=== PATIENT | female | born 1935 | race Caucasian/White ===

== ENCOUNTER 2017-08-04 20:25 | Emergency (ER) | payer MEDICARE, OTHER ==
[2017-08-04 21:37] VITALS: BP 137/73
--- NOTE | 2017-08-05 01:47 | EDM.PDOC ---
ED HPI GENERAL MEDICAL PROBLEM - General Chief Complaint: Gastrointestinal Problem Stated Complaint: [phone] BLOODY STOOL Time Seen by Provider: 08/05/17 00:07 Source of Information: Reports: Patient History Limitations: Reports: Other (Hearing impaired. ) - History of Present Illness INITIAL COMMENTS - FREE TEXT/NARRATIVE: ED with daughter. Reports 2 episodes of bloody diarrhea one bright red and one dark. No nausea or abdominal pain. Has had stomach ulcers in past, hemorrhoids that bleed at times when constipated. Chills past few days. Rectal Pain Score (Numeric/FACES): 8 - Related Data Allergies Allergy/AdvReac Type Severity Reaction Status Date / Time No Known Allergies Allergy Verified 08/04/17 21:31 Home Meds: Home Meds Aspirin [Adult Low Dose Aspirin EC] 81 mg PO DAILY 03/13/14 [History] Budesonide [Pulmicort] 0.5 mg INH ASDIRECTED 03/13/14 [History] Formoterol [Perforomist] 20 mcg INH ASDIRECTED 03/13/14 [History] Levothyroxine 112 mcg PO DAILY 03/13/14 [History] Metoprolol Succinate [Toprol XL] 25 mg PO DAILY 03/13/14 [History] Multivitamin [Multi Vitamin Daily] 1 tab PO DAILY 03/13/14 [History] Nitroglycerin [Nitrostat] 0.4 mg SL ASDIRECTED PRN 03/13/14 [History] Simvastatin [Zocor] 5 mg PO DAILY 03/13/14 [History] Warfarin [Coumadin] 4 mg PO ASDIRECTED 03/13/14 [History] amLODIPine [Norvasc] 2.5 mg PO DAILY 03/13/14 [History] traMADol [Ultram] 50 mg PO DAILY PRN 03/13/14 [History] Warfarin [Coumadin] 2 mg PO ASDIRECTED 03/14/14 [History] Ferrous Sulfate [Iron] 325 mg PO BID 05/04/14 [History] Calcitriol [Rocaltrol] 1 cap PO ASDIRECTED 02/13/15 [History] Calcium Carbonate [Tums] 1 tab PO ASDIRECTED PRN 02/13/15 [History] Ipratropium/Albuterol Sulfate [Combivent Respimat Inhal [place]] 2 puff IH Q4HR PRN 02/13/15 [History] Omeprazole 20 mg PO DAILY 02/13/15 [History] Past Medical History HEENT History: Reports: Hard of Hearing, Impaired Vision, Other (See Below) Other HEENT History: deaf Cardiovascular History: Reports: Afib Respiratory History: Reports: COPD Gastrointestinal History: Reports: Chronic Constipation, Other (See Below) ( stomach ulcers, hemorrhoids) Genitourinary History: Reports: None [employer] History: Reports: None Musculoskeletal History: Reports: Other (See Below) Other Musculoskeletal History: wrist fr, middle back fx Neurological History: Reports: None Psychiatric History: Reports: None Endocrine/Metabolic History: Reports: Other (See Below) Other Endocrine/Metabolic History: thyroid Hematologic History: Reports: None, Anticoagulation Therapy Oncologic (Cancer) History: Reports: None Social & Family History - Tobacco Use Smoking Status *Q: Never Smoker Second Hand Smoke Exposure: No - Alcohol Use Days Per Week of Alcohol Use: 1 Number of Drinks Per Day: 1 Total Drinks Per Week: 1 - Recreational Drug Use Recreational Drug Use: No Drug Use in Last 12 Months: No ED ROS GENERAL - Review of Systems Review Of Systems: See Below Constitutional: Reports: Chills HEENT: Reports: No Symptoms Respiratory: Reports: Other (COPD hx) Cardiovascular: Reports: Lightheadedness (when stands up), Other (hx a-fib, INR last week 2.8. ) GI/Abdominal: Reports: Constipation (hx), Other (2 diarrhea stools this aaliyah one large dark blood, one bright red blood.). Denies: Abdominal Pain, Nausea, Vomiting : Reports: No Symptoms Musculoskeletal: Reports: No Symptoms Skin: Reports: No Symptoms Neurological: Reports: No Symptoms Hematologic/Lymphatic: Reports: Other (chronic anticoagulation) ED EXAM, GI/ABD - Physical Exam Exam: See Below Exam Limited By: No Limitations General Appearance: Alert Ears: Hearing Loss (deaf) Throat/Mouth: Normal Inspection Head: Atraumatic, Normocephalic Neck: Normal Inspection Respiratory/Chest: No Respiratory Distress, Lungs Clear, Decreased Breath Sounds (bases), Other (rare couch) Cardiovascular: Normal Peripheral Pulses, Irregularly Irregular GI/Abdominal Exam: Normal Bowel Sounds, Soft, Non-Tender Rectal (Female) Exam: Normal Rectal Tone, Heme + Stool, Hemorrhoids (large) Back Exam: Normal Inspection Extremities: Normal Inspection Neurological: Alert, Oriented, Normal Cognition Psychiatric: Normal Affect Skin Exam: Warm, Dry, Intact, Normal Color Course - Vital Signs Last Recorded V/S: Last Vital Signs Temp 97 F 08/04/17 21:33 Pulse 82 08/04/17 21:33 Resp 18 08/04/17 21:33 BP 137/73 08/04/17 21:33 Pulse Ox 96 08/04/17 21:33 Orthostatic Blood Pressure [ 125/72 Supine] Orthostatic Blood Pressure [ 126/82 Standing] Orthostatic Blood Pressure [ 132/74 Sitting] - Orders/Labs/Meds Orders: Active Orders 24 hr Category Date Time Status Orthostatic Vital Signs [RC] ASDIRECTED Care 08/05/17 01:08 Active CULTURE BLOOD [BC] Stat Lab 08/05/17 01:45 Received CULTURE BLOOD [BC] Stat Lab 08/05/17 01:50 Received Blood Culture x2 Reflex Set [OM.PC] Stat Oth 08/05/17 01:37 Ordered Labs: Laboratory Tests 08/05/17 08/05/17 08/05/17 Range/Units 00:45 00:45 00:45 WBC 17.8 H (5.0-10.0) 10^3/uL RBC 3.98 L (4.2-5.4) 10^6/uL Hgb 12.2 (12.0-16.0) g/dL Hct 38.1 (37.0-47.0) % MCV 95.7 (80-100) fL MCH 30.7 (27.0-34.0) pg MCHC 32.0 L (33.0-35.0) g/dL Plt Count 248 (150-450) 10^3/uL Neut % (Auto) 86.5 H (42.2-75.2) % Lymph % (Auto) 5.9 L (20.5-50.1) % [place] % (Auto) 6.8 (2-8) % Eos % (Auto) 0.6 L (1.0-3.0) % Baso % (Auto) 0.2 (0.0-1.0) % PT 23.4 H (9.0-12.0) SEC INR 2.3 H (0.9-1.2) Sodium 133 L (135-145) mmol/L Potassium 3.9 (3.6-5.0) mmol/L Chloride 98 L (101-111) mmol/L Carbon Dioxide 26.0 (21.0-31.0) mmol/L Anion Gap 12.9 BUN 16 (7-18) mg/dL Creatinine 1.0 (0.6-1.3) mg/dL Est Cr Clr Drug Dosing 40.60 mL/min Estimated GFR (MDRD) 53 BUN/Creatinine Ratio 16.00 Glucose 116 H (74-105) mg/dL Lactic Acid (0.5-2.2) mmol/L Calcium 9.2 (8.4-10.2) mg/dl Total Bilirubin 0.4 (0.2-1.0) mg/dL AST 26 (10-42) IU/L ALT 15 (10-60) IU/L Alkaline Phosphatase 58 (42-121) IU/L Total Protein 8.1 (6.7-8.2) g/dl Albumin 4.2 (3.2-5.5) g/dl Globulin 3.9 Albumin/Globulin Ratio 1.08 Amylase 78 (28-100) U/L Lipase 25 (22-51) U/L Urine Color (YELLOW) Urine Appearance (CLEAR) Urine pH (5.0-9.0) Ur Specific [place] (1.005-1.030) Urine Protein (NEGATIVE) Urine Glucose (UA) (NEGATIVE) Urine Ketones (NEGATIVE) Urine Occult Blood (NEGATIVE) Urine Nitrite (NEGATIVE) Urine Bilirubin (NEGATIVE) Urine Urobilinogen (0.2-1.0) mg/dL Ur Leukocyte Esterase (NEGATIVE) Urine RBC /HPF Urine WBC (0-5/HPF) /HPF Ur Epithelial Cells /HPF Urine Bacteria (0-FEW/HPF) /HPF 18 18 Range/Units 01:32 01:45 WBC (5.0-10.0) 10^3/uL RBC (4.2-5.4) 10^6/uL Hgb (12.0-16.0) g/dL Hct (37.0-47.0) % MCV (80-100) fL MCH (27.0-34.0) pg MCHC (33.0-35.0) g/dL Plt Count (150-450) 10^3/uL Neut % (Auto) (42.2-75.2) % Lymph % (Auto) (20.5-50.1) % [place] % (Auto) (2-8) % Eos % (Auto) (1.0-3.0) % Baso % (Auto) (0.0-1.0) % PT (9.0-12.0) SEC INR (0.9-1.2) Sodium (135-145) mmol/L Potassium (3.6-5.0) mmol/L Chloride (101-111) mmol/L Carbon Dioxide (21.0-31.0) mmol/L Anion Gap BUN (7-18) mg/dL Creatinine (0.6-1.3) mg/dL Est Cr Clr Drug Dosing mL/min Estimated GFR (MDRD) BUN/Creatinine Ratio Glucose (74-105) mg/dL Lactic Acid 1.0 (0.5-2.2) mmol/L Calcium (8.4-10.2) mg/dl Total Bilirubin (0.2-1.0) mg/dL AST (10-42) IU/L ALT (10-60) IU/L Alkaline Phosphatase (42-121) IU/L Total Protein (6.7-8.2) g/dl Albumin (3.2-5.5) g/dl Globulin Albumin/Globulin Ratio Amylase (28-100) U/L Lipase (22-51) U/L Urine Color Yellow (YELLOW) Urine Appearance Slightly cloudy (CLEAR) Urine pH 6.5 (5.0-9.0) Ur Specific [place] 1.015 (1.005-1.030) Urine Protein Negative (NEGATIVE) Urine Glucose (UA) Negative (NEGATIVE) Urine Ketones Negative (NEGATIVE) Urine Occult Blood Trace-intact H (NEGATIVE) Urine Nitrite Negative (NEGATIVE) Urine Bilirubin Negative (NEGATIVE) Urine Urobilinogen 0.2 (0.2-1.0) mg/dL Ur Leukocyte Esterase Small H (NEGATIVE) Urine RBC 0-5 /HPF Urine WBC 5-10 H (0-5/HPF) /HPF Ur Epithelial Cells Moderate H /HPF Urine Bacteria Moderate H (0-FEW/HPF) /HPF Meds: Medications Discontinued Medications Generic Name Dose Route Start Last Admin Trade Name Freq PRN Reason Stop Dose Admin Piperacillin Sod/Tazobactam 100 mls @ 200 mls/hr 08/05/17 01:55 08/05/17 02: 16 Sod 3.375 gm/ Sodium Chloride IV 08/05/17 02:24 200 mls/hr ONETIME ONE Administration Sodium Chloride 1,000 mls @ 125 mls/hr 08/05/17 01:55 08/05/17 02:16 Normal Saline IV 08/05/17 09:54 125 mls/hr .BOLUS ONE Administration - Radiology Interpretation Free Text/Narrative:: Ct abdomen and pelvis: Haziness in fat around the rectum and suspicion of thickening of it wall, Minimal sigmoid and descending diverticulosis. Little colonic feces. Minimal haziness in the left superior mesenteric fat. No obstruction. Findings consistent with proctitis.No free air. Possible slight mesenteric adenitis Mild left ovarian varices Questionable small dystrophic calcification or high density cyst in right upper kidney. Small left renal cortical scars Possible interstitial fibrosis, Cardiomegaly. - Re-Assessments/Exams Free Text/Narrative Re-Assessment/Exam: 08/05/17 02:[address] Tellez, accepting of patient for further eval and managment of lower GI/ rectal bleeding. Tx via LRAS in stable condition. Departure - Departure Time of Disposition: 02:20 Disposition: DC/Tfer to Acute Hospital 02 Condition: Fair Clinical Impression: Chronic anticoagulation, Proctitis, Bloody diarrhea Atrial fibrillation Qualifiers: Atrial fibrillation type: chronic Qualified Code(s): I48.2 - Chronic atrial fibrillation Hearing impaired person Qualifiers: Laterality: unspecified laterality Qualified Code(s): H91.90 - Unspecified hearing loss, unspecified ear - Discharge Information Forms: ED Department Discharge, Interfacility Transfer EMTALA - My Orders Last 24 Hours: My Active Orders 08/05/17 01:08 Orthostatic Vital Signs [RC] ASDIRECTED 08/05/17 01:37 Blood Culture x2 Reflex Set [OM.PC] Stat 08/05/17 01:45 CULTURE BLOOD [BC] Stat 08/05/17 01:50 CULTURE BLOOD [BC] Stat - Assessment/Plan Last 24 Hours: My Active Orders 08/05/17 01:08 Orthostatic Vital Signs [RC] ASDIRECTED 08/05/17 01:37 Blood Culture x2 Reflex Set [OM.PC] Stat 08/05/17 01:45 CULTURE BLOOD [BC] Stat 08/05/17 01:50 CULTURE BLOOD [BC] Stat
[2017-08-05] MEDS: Piperacillin/Tazobactam 3.375 GM in Sodium Chloride 0.9% 100 ML IV ONE (02:16)
[2017-08-05] MEDS: Sodium Chloride 0.9% 1,000 ML IV ONE (02:16)
== END 2017-08-05 02:44 ==
LOC: DL.ED 20:25
DX: K62.89 Other specified diseases of anus and rectum (principal); R19.5 Other fecal abnormalities; H91.90 Unspecified hearing loss, unspecified ear; I48.2 Chronic atrial fibrillation; Z79.82 Long term (current) use of aspirin; Z79.899 Other long term (current) drug therapy; Z79.01 Long term (current) use of anticoagulants
CPT/HCPCS: 36415; 74018; 74176; 80053; 81001; 82150; 82272; 83605; 83690; 85025; 85610; 87040; 96365; 99285; J2543; J7030; J7050